=== PATIENT | male | born 1985 | race Caucasian/White ===

== ENCOUNTER 2021-04-25 13:07 | Emergency (ER) | payer SELFPAY ==
[2021-04-25 13:53] VITALS: BP 123/72; PULSE 63; RESP 16; TEMP 37.1; O2SAT 99; BMI 20.5
--- NOTE | 2021-04-25 14:09 | HMH.EDUTC ---
[facility] [place] Disposition Clinical Impression: Exposure to COVID-19 virus Disposition: Home, Self-Care Condition on Discharge: Good Instructions: Preventing the Spread of Coronavirus Discharge Instructions Additional Instructions: Drink plenty of fluids. Take tylenol for pain or fever. Return if you begin to have difficulty breathing. Follow up with your regular doctor. GO TO THE ER FOR ANY WORSENING SYMPTOMS Quarantine until you know the results of your covid-19 test. If it is positive, the health department should call you and give you further instructions about your length of Quarantine and other things. Notify your school or workplace of your results and follow their instructions regarding return to work/school. Referrals: Provider,Referral, [Primary Care Provider] - Time of Disposition: 14:13 Medical Decision Making - Medical Records Medical records reviewed: No: I reviewed the patient's medical records. - Jaziel Inquiry Pt receiving controlled substance: No Vital Signs: 04/25/21 13:53 04/25/21 14:33 Temperature 98.7 F 98.7 F Temperature Source Oral Pulse Rate 63 Pulse Rate [Right Radial] 63 Respiratory Rate 16 16 Blood Pressure 123/72 Blood Pressure [Right Arm] 123/72 Blood Pressure Mean [Right Arm] 89 Blood Pressure Source [Right Arm] Automatic Cuff Blood Pressure Position [Right Arm] Sitting 02 Sat by Pulse Oximetry 99 Oxygen Delivery Method Room Air Room Air Orders (Tests/Meds): ORDERS Category Date Time Status Covid-19 Nasal PCR ([facility]) Routine Lab 04/25/21 13:48 Received [facility] [place] HPI - General Stated complaint: covid test/exposure Time Seen by Provider: 04/25/21 14:09 Mode of Arrival: Ambulatory Source of Information: Patient Limitations: No Limitations Description of Symptoms (Recalled from Triage Doc. by RN): Covid exposure. Denies symptoms. HEENT Symptoms (Recalled from RN notes): No Resp Symptoms (Recalled from RN notes): No Skin Symptoms (Recalled from RN notes): No MS Symptoms (Recalled from RN notes): No Functional Status (Recalled from RN notes): n/a - History of Present Illness Provider Complaint: He has been exposed to covid-19 by his daughter having it. He denies any symptoms so far. - Related Data Allergies Allergy/AdvReac Type Severity Reaction Status Date / Time No Known Allergies Allergy Verified 04/25/21 14:03 - Worker's Comp Is this a Worker's Comp case?: No H History - Hepatitis A Screen Drug use history?: No High risk sexual behaviors?: No History of sexually transmitted infection?: No Currently employed?: No Childcare worker?: No Do you have indoor plumbing?: Yes Do you have electricity?: Yes Attestation statement:: This patient has been screened for Hepatitis A risk factors. I have reviewed the patient's past medical history: Yes ROS Obtained: Yes All systems reviewed & no additional complaints - Constitutional Constitutional: Reports system reviewed and no additional complaints, except as docu - Eyes Eyes: Reports system reviewed and no additional complaints, except as docu - ENT Ears, Nose, Mouth, and Throat: Reports system reviewed and no additional complaints, except as docu - Cardiovascular Cardiovascular: Reports system reviewed and no additional complaints, except as docu - Respiratory Respiratory: Reports system reviewed and no additional complaints, except as docu - Gastrointestinal Gastrointestingal: Reports: system reviewed and no additional complaints, except as docu Physical Exam - General General appearance: alert, in no apparent distress - Head Head exam: atraumatic, normocephalic, normal inspection - Eye Eye exam: Present: normal appearance, PERRL, EOMI - ENT ENT exam: Present: normal exam, normal oropharynx, mucous membranes moist, TM's normal bilaterally, normal external ear exam - Neck Neck exam: Present: normal inspection, full ROM, trachea midline. Absent: mening
[2021-04-25 14:33] VITALS: BP 123/72; PULSE 63; RESP 16; TEMP 37.1; O2SAT 99
--- NOTE | 2021-04-26 13:25 | PC.NURSE ---
PATIENT NOTIFIED OF POSITIVE COVID TEST AT THIS TIME
== END 2021-04-25 14:34 | disposition home or self-care (01) ==
PROVIDERS: Emergency Provider Nurse Practitioner Family
DX: U07.1 COVID-19 (principal)
CPT/HCPCS: 99202; G0463; U0003

== ENCOUNTER → 2021-08-14 12:23 | Outpatient (CLI) | payer SELFPAY | PROVIDERS: Visit Provider Nurse Practitioner | DX: Z20.822 Contact with and (suspected) exposure to COVID-19 (principal) | CPT/HCPCS: C9803; U0003; U0005 ==

== ENCOUNTER 2023-08-16 00:23 | Inpatient (IN) | payer SELFPAY ==
[2023-08-16] VITALS (23 sets, daily range): BP systolic 103–150; BP diastolic 51–97; PULSE 50–82; RESP 16–20; TEMP 36.1–36.9; O2SAT 94–100; BMI 20.9; BMI 21.5
[2023-08-16 00:45] LABS: Basophils # 0.1 K/mm3 (0-0.2); Basophils % 0.6 % (0.1-2.0); Eosinophils # 0.6 K/mm3 (0.0-0.4); Eosinophils % 5.1 % (0.1-12.0); Hematocrit 44.9 % (42.0-52.0); Hemoglobin 15.5 g/dL (14.1-18.0); Lymphocytes # 3.6 K/mm3 (0.7-4.5); Lymphocytes % 32.6 % (10-50); Mean Corpuscular HGB Conc 34.6 g/dL (31.8-35.4); Mean Corpuscular Hemoglobin 32.3 pg (27.0-31.2); Mean Corpuscular Volume 93.2 fl (80-94); Mean Platelet Volume 8.2 fl (7.4-10.4); Monocytes # 0.7 K/mm3 (0.1-1.0); Monocytes % 6.2 % (1.7-9.3); Neutrophils % 55.4 % (37.0-80.0); Platelet Count 286 K/mm3 (142-424); Red Blood Count 4.81 M/mm3 (4.60-6.20); Red Cell Distribution Width 13.1 % (11.5-17.5); White Blood Count 10.9 K/mm3 (4.8-10.8)
[2023-08-16] MEDS: 0.9 % SODIUM CHLORIDE 1000ML 1,000 ML 999 ML IV (00:51)
[2023-08-16] MEDS: ONDANSETRON 4MG/2ML VIAL 4 MG IV (00:51)
[2023-08-16] MEDS: KETOROLAC 30MG/ML VIAL 30 MG IV (00:51)
[2023-08-16 00:52] LABS: Alanine Aminotransferase 27 U/L (12-78); Albumin Level 4.7 g/dl (3.5-5.0); Albumin/Globulin Ratio 1.8 (1.1-1.8); Alkaline Phosphatase 80 U/L (38-126); Aspartate Amino Transferase 35 U/L (17-59); Bilirubin,Total 0.6 mg/dl (0.2-1.3); Blood Urea Nitrogen 14 mg/dl (9-20); Calcium 9.1 mg/dl (8.4-10.2); Chloride 103 mmol/L (98-107); Creatinine Clearance Estimated 127 mL/min (50-200); Estimated Glomerular Filt Rate 109 ml/min (>60); GFR (African American) 132 ML/MIN (>60); Globulin 2.6 g/dL (1.3-3.2); Glucose 123 mg/dl (74-100); Potassium 3.6 mmoL/L (3.5-5.1); Sodium 136 mmol/L (136-145); Total Protein,Serum 7.3 g/dl (6.3-8.2)
[2023-08-16 00:53] LABS: Anion Gap 10.6 mEq/L (5-15); Carbon Dioxide 26 mmol/L (22.0-30.0)
--- NOTE | 2023-08-16 00:59 | PC.NURSE ---
, RN, and Medic at bedside at this time.
--- NOTE | 2023-08-16 01:01 | PC.NURSE ---
paging at this time.
--- NOTE | 2023-08-16 01:02 | PC.NURSE ---
o/p with at this time.
[2023-08-16] MEDS: FENTANYL 100MCG/2ML VIAL 100 MCG IV (01:03)
--- NOTE | 2023-08-16 01:05 | PC.NURSE ---
called slitting and shipping supervisor to call in surgery team per at this time.
--- NOTE | 2023-08-16 01:05 | HMH.EDGENADL ---
Discharge Plan Disposition Chief Complaint: Urogenital-Male Referrals Follow up/Referrals: Provider,Referral, [Primary Care Provider] - See instructions Clinical Impressions Clinical Impression: Incarcerated right inguinal hernia Instructions Patient Instructions: DI for Urinary Tract Infection (UTI), DI for Urinary Tract Infection in Children Discharge ED Provider: Emery Diaz Adult HPI General Chief complaint: Urogenital-Male Stated complaint: Vomiting,Hernia right groin Time Seen by Provider: 08/16/23 00:27 Mode of Arrival: Ambulatory Source of Information: Patient and Spouse Limitations: No Limitations Description of Symptoms (Recalled from ER Triage Doc. by RN): Patient states that his hernia is swollen and hurting for the last few hours. 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 He last ate around 7 PM. He has developed worsening pain and swelling. He is also had nausea and vomiting. Related Data Allergies Allergy/AdvReac Type Severity Reaction Status Date / Time No Known Allergies Allergy Verified 04/25/21 14:03 [facility] Disclaimer: The information contained in this section may have been updated after the patient was seen, as this information can be updated by other users. Social History Smoking Status: Current every day smoker alcohol intake: never current occupational status: employed Travel in the last 8 weeks: None ROS Obtained: Yes All systems reviewed & no additional complaints except as documented Physical Exam General General appearance: alert and in distress (secondary to pain) Head Head exam: atraumatic and normocephalic Eye Eye exam: Present normal appearance, PERRL and EOMI ENT ENT exam: Present normal oropharynx and normal external ear exam Neck Neck exam: Present normal inspection and full ROM Chest Chest inspection: Present normal inspection and symmetric chest wall rise; Absent tenderness Respiratory Respiratory exam: Present normal lung sounds bilaterally; Absent respiratory distress Cardiovascular Cardiovascular exam: Present normal rhythm and bradycardia Abdominal Exam Abdominal exam: Present soft and tenderness (Mild, generalized); Absent distention or guarding exam: Present other (Marked firm swelling of the right scrotum and groin terminating at the inguinal canal. Severely tender. No significant overlying skin changes. Gas-filled.) Extremities Exam Extremities exam: Present normal inspection; Absent edema or joint swelling Back Exam Back exam: Present normal inspection; Absent tenderness Neurological Exam Neurological exam: Present alert and oriented X3; Absent motor sensory deficit Psychiatric Psychiatric exam: Present normal affect and normal mood Skin Skin exam: Present warm, dry and normal color Lymphatic Lymphatic Findings: no adenopathy Medical Decision Making Medical Records Medical records reviewed: Yes I reviewed the patient's medical records. Jaziel Inquiry Pt receiving controlled substance: No Jaziel was queried for this patient: No Vital Signs: 08/16/23 00:37 Temperature 97.8 F Temperature Source Oral Pulse Rate [Radial] 58 L Respiratory Rate 20 Blood Pressure [Left Arm] 126/83 Blood Pressure Mean [Left Arm] 97 Blood Pressure Source [Left Arm] Automatic Cuff Blood Pressure Position [Left Arm] Sitting 02 Sat by Pulse Oximetry 99 Oxygen Delivery Method Room Air Lab Data Lab results reviewed: Yes I reviewed the patient's lab results. Lab Results 08/16/23 00:37: WBC 10.9 H, RBC 4.81, Hgb 15.5, Hct 44.9, MCV 93.2, MCH 32.3 H, MCHC 34.6, RDW 13.1, Plt Count 286, MPV 8.2, Neut % (Auto) 55.4, Lymph % (Auto) 32.6, Blount % (Auto) 6.2, Eos % (Auto) 5.1, Baso % (Auto) 0.6, Neut # (Auto) 6.0, Lymph # (Auto) 3.6, Blount # (Auto) 0.7, Eos # (Auto) 0.6 H, Baso # (Auto) 0.1, Sodium 136, Potassium 3.6, Chloride 103, Carbon Dioxide 26, Anion Gap 10.6, BUN 14, Creatinine 0.80, Estimated Creat Clear 127, Estimated GFR 109, Est GFR ( Amer) 132, Glucose 123 H, Calcium 9.1, Total Bilirubin 0.6, AST 35, ALT 27, Alkaline Phosphatase 80, Total Protein 7.3, Albumin 4.7, Globulin 2.6, Albumin/Globulin Ratio 1.8 08/16/23 00:37 08/16/23 00:37 Orders (Tests/Meds): ED MEDICATIONS Generic Name Dose Route Start Last Admin Trade Name Freq PRN Reason Stop Dose Admin Fentanyl Citrate 100 mcg 08/16/23:03 08/16/23 01:03 Fentanyl 100mcg/2ml Vial IV 08/16/23 01:04 100 mcg ONCE ONE Administration Sodium Chloride 1,000 mls @ 999 mls/hr 08/16/23 00:45 08/16/23 00:51 Sod Chlor 0.9% 1000ml Bag IV 08/16/23 01:45 999 mls/hr .Q1H1M KELSEA Administration Discontinued Medications Generic Name Dose Route Start Last Admin Trade Name Cooper PRN Reason Stop Dose Admin Fentanyl Citrate 150 mcg 08/16/23 00:34 Fentanyl 100mcg/2ml Vial IV 08/16/23 00:35 ONCE ONE Ketorolac Tromethamine 30 mg 08/16/23 00:34 08/16/23 00:51 Ketorolac 30mg/Ml Vial IV 08/16/23 00:35 30 mg ONCE ONE Administration Ondansetron HCl 4 mg 08/16/23 00:34 08/16/23 00:51 Ondansetron 4mg/2ml Vial IV 08/16/23 00:35 4 mg ONCE ONE Administration ORDERS Category Date Time Status CBC w/Auto Diff [Complete Blood Count Auto Diff] Stat Lab 08/16/23 00:37 Completed CMP [Comprehensive Metabolic Panel] Stat Lab 08/16/23 00:37 Completed Lactic Acid Stat Lab 08/16/23 00:39 Ordered Medical Decision Narrative: 37-year-old male with distant history of incarcerated left inguinal hernia status post repair, history of known right inguinal hernia without operative intervention, otherwise healthy presents with a few hours of severe pain and swelling in the right groin and scrotum. History was obtained via conversation with patient, family. On arrival, patient is [afebrile, hemodynamically stable, satting appropriately, alert, oriented x4, GCS 15], moving all extremities spontaneously. Full physical exam performed and significant for findings consistent with a large gas-filled incarcerated right inguinal hernia without overlying skin changes. Differential includes but is not limited to reducible hernia, incarcerated hernia, strangulated hernia, bowel obstruction. Patient was given 30 mg Toradol, 100 mcg of fentanyl for attempted reduction. Workup initiated including CBC CMP lactate. Procedure: Hernia reduction Indication: Incarcerated hernia Details: Manual reduction of the incarcerated hernia was attempted by me at bedside after administration of IV fentanyl. Patient achieved appropriate analgesia. Despite persistent effort, we were unable to reduce any of the gas or bowel from the hernia sac. Given this, general surgery was emergently consulted and an interactive discussion was had with Dr. Dalal on-call. Patient to be taken emergently to the OR for operative repair. Laboratory workup independently interpreted by me and significant for mild leukocytosis, normal renal function. CT imaging was considered, but deemed unnecessary as it is unlikely to change clinical course and may only delay operative intervention. Given patient history, exam and workup, patient's presentation most likely represents acute incarcerated right inguinal hernia. Procedures Risk/Benefits of Procedure(s) Were Explained: Yes Miscellaneous Procedure Procedure Performed: Procedure: right inguinal hernia reduction Indication: Incarcerated hernia Details: Manual reduction of the incarcerated hernia was attempted by me at bedside after administration of IV fentanyl. Patient achieved appropriate analgesia. Despite persistent effort, we were unable to reduce any of the gas or bowel from the hernia sac. Critical Care Critical Care Time Critical Care Time: Yes Attestation: On 08/16/23, the high probability of a clinically significant, sudden or life threatening deterioration of the following system(s) GI required my full and direct attention, intervention and personal management. The time I documented below is in addition to time spent performing reported procedures but includes the following listed in this critical care notation. Total Time Total Critical Care Time: 36
--- NOTE | 2023-08-16 01:08 | PC.NURSE ---
Surgery team paged per ER for Dr. Roldan at 0105. Julian Telles returned call at 0106. Emy Jaimes returned call at 0107. Leticia Camarillo returned call at 0108.
[2023-08-16] MEDS: PROMETHAZINE HCL 25MG/ML 1ML VIAL 25 MG IV (01:17)
--- NOTE | 2023-08-16 01:20 | PC.NURSE ---
Dr Roldan @ bedside
--- NOTE | 2023-08-16 01:36 | P.HP_ITS ---
HPI HPI HPI: This is a 37-year-old gentleman who reported to the emergency department with increasing groin pain and scrotal swelling. Evaluation revealed an incarcerated right inguinal hernia and the surgical service was immediately called. Forwarded from emergency department evaluation: HPI narrative: 37-year-old male, history of incarcerated left inguinal hernia [facility] many years ago, history of a known right inguinal hernia that has had no operative intervention, presents with severe right inguinal pain and swelling for last few hours. He last ate around 7 PM. He has developed worsening pain and swelling. He is also had nausea and vomiting. [facility] Disclaimer: The information contained in this section may have been updated after [facility], as this information can be updated by other users. Social History (Updated 08/16/23 @ 01:20 by Emery Diaz MD) Smoking Status: Current every day smoker alcohol intake: never current occupational status: employed Travel in the last 8 weeks: None Meds Home Medications and Allergies New Prescriptions to Start Prescriptions: Allergies Allergy/AdvReac Type Severity Reaction Status Date / Time No Known Allergies Allergy Verified 04/25/21 14:03 Exam Data for Last 24 hours Vital signs and Labs for Last 24 Hours: Temp Pulse Resp BP Pulse Ox O2 Del Method 97.8 F 51 L 16 117/89 100 Room Air 08/16/23 00:37 08/16/23 01:15 08/16/23 01:15 08/16/23 01:15 08/16/23 01:15 08/16/23 00:37 Laboratory Results - last 24 hr 08/16/23 00:37: WBC 10.9 H, RBC 4.81, Hgb 15.5, Hct 44.9, MCV 93.2, MCH 32.3 H, MCHC 34.6, RDW 13.1, Plt Count 286, MPV 8.2, Neut % (Auto) 55.4, Lymph % (Auto) 32.6, Mercer % (Auto) 6.2, Eos % (Auto) 5.1, Baso % (Auto) 0.6, Neut # (Auto) 6.0, Lymph # (Auto) 3.6, Mercer # (Auto) 0.7, Eos # (Auto) 0.6 H, Baso # (Auto) 0.1, S odium 136, Potassium 3.6, Chloride 103, Carbon Dioxide 26, Anion Gap 10.6, BUN 14, Creatinine 0.80, Estimated Creat Clear 127, Estimated GFR 109, Est GFR ( Amer) 132, Glucose 123 H, Calcium 9.1, Total Bilirubin 0.6, AST 35, ALT 27, Alkaline Phosphatase 80, Total Protein 7.3, Albumin 4.7, Globulin 2.6, Albumin/Globulin Ratio 1.8 I & O for Last 24 hours: Intake & Output 08/13/23 08/14/23 08/15/23 08/16/23 11:59 11:59 11:59 11:59 Weight 155 lb Constitutional Constitutional: no acute distress *Routine HEENT Exam Head: Present normocephalic Eye: Present EOMI ENT: Present mucous membranes moist *Routine Neck Exam Neck: Present full ROM Routine Chest/Breast/Axilla Exam Chest wall: Absent tenderness *Routine Respiratory Exam Respiratory: Absent respiratory distress *Routine Cardiovascular Exam Cardiovascular: Present bradycardia *Routine Abdominal Exam Abdominal: Present hernia (Incarcerated right scrotal hernia) *Routine Rectal Exam Rectal:: deferred *Routine Genitalia Exam Genitalia:: deferred *Routine Extremities Exam Extremities: Present full ROM Routine Back/Spine/Pelvis Exam Back/Spine: Present full ROM *Routine Skin Exam Skin: Present intact *Routine Neurological Exam Neurological: Present alert Routine Psychiatric Exam Psychiatric: Present normal affect Results Results Lab Results Last 24 Hours:: Laboratory Results - last 24 hr 08/16/23 00:37: WBC 10.9 H, RBC 4.81, Hgb 15.5, Hct 44.9, MCV 93.2, MCH 32.3 H, MCHC 34.6, RDW 13.1, Plt Count 286, MPV 8.2, Neut % (Auto) 55.4, Lymph % (Auto) 32.6, Mercer % (Auto) 6.2, Eos % (Auto) 5.1, Baso % (Auto) 0.6, Neut # (Auto) 6.0, Lymph # (Auto) 3.6, Mercer # (Auto) 0.7, Eos # (Auto) 0.6 H, Baso # (Auto) 0.1, Sodium 136, Potassium 3.6, Chloride 103, Carbon Dioxide 26, Anion Gap 10.6, BUN 14, Creatinine 0.80, Estimated Creat Clear 127, Estimated GFR 109, Est GFR ( Amer) 132, Glucose 123 H, Calcium 9.1, Total Bilirubin 0.6, AST 35, ALT 27, Alkaline Phosphatase 80, Total Protein 7.3, Albumin 4.7, Globulin 2.6, Albumin/Globulin Ratio 1.8 Assessment and Plan *Assessment and plan (1) Incarcerated right inguinal hernia: Status: Acute Category: Medical Code(s): K40.30 - Unilateral inguinal hernia, with obstruction, without gangrene, not specified as recurrent Plan: Emergent operative exploration for possible bowel resection and possible hernia repair. I have discussed the risks and benefits including, but not limited to: Bleeding Infection Damage to surrounding tissue Inherent risks of sedation The patient agrees to proceed.
[2023-08-16] MEDS: LIDOCAINE 1% 20ML MDV 20 ML (02:10)
--- NOTE | 2023-08-16 02:41 | SUR.OPER ---
Patient was already medicated prior to going over consent. and patient were explained the procedure by Dr. Roldan and the consent was signed by the Nguyen Nuñez, the patient verbalized consent also while the was signing. Dr aware and okay due to the emergency situation. The procedure and consent stated, right incarcerated inguinal hernia, possible bowel resection. Dr. Roldan and I also signed the consent prior to procedure. Coude 16f catheter was inserted with no difficulty at 0158. Ua was collected at 0159. The patient was prepped with hibiclens, the abdomen, penis and scrotal areas. The procedure began at 0210 after time out was called.
--- NOTE | 2023-08-16 02:47 | P.PNANES_ITS ---
[facility] Disclaimer: The information contained in this section may have been updated after the patient was seen, as this information can be updated by other users. Social History (Updated 08/16/23 @ 01:20 by Emery Diaz MD) Smoking Status: Current every day smoker alcohol intake: never substance use type: marijuana current occupational status: employed Travel in the last 8 weeks: None [facility] Anesthesia Checklist Patient Identification Patient Identification: Arm Band Structural Data Admitted From: Emergency Dept Planned Operative Procedure/s: Open Right Inguinal Hernia Repair Consent for Planned Operative Procedure(s) Verified: Yes Verified Documents: Surgical Consent and History and Physical NPO Status Verified Time NPO: 21:00 (08/15/23) Additional verifications Anesthesia Reactions: No Airway Assessment Mallampati Score:: Class II C-Spine Mobility Assessed: Yes TMJ Mobility Assessed: Yes Dentition: Poor Dentition Neurological Assessment Level of Consciousness: Awake and Alert Anesthesia Plan Anesthesia Risk discussed: Yes Anesthesia Plan: Verified ASA Class: II (E) Anesthesia Type: General
--- NOTE | 2023-08-16 04:03 | EXP.OP.NOTE ---
Date of procedure: 08/16/23 Pre-op Diagnosis:: Incarcerated right inguinal hernia Post-op Diagnosis:: Same Procedure performed:: Open repair of incarcerated right inguinal hernia Surgeon:: Nic Roldan MD MUSICAL INSTRUMENT MAKER:: Julian Fierro Anesthesia: GETA Estimated blood loss (mL): 25 Operative findings:: Incarcerated small bowel Small bowel appeared viable Edematous small bowel mesentery Operative note:: After informed consent was obtained the patient was taken to the operating room and placed in the supine position. General anesthesia was induced and his abdomen and groin/scrotum were prepped and draped in a sterile fashion. After infiltration with local anesthetic an oblique incision was made in the right groin. Dissection was taken through Kylie's fascia to the level of the external aponeurosis. The external aponeurosis was opened sharply to the level of the external ring. Incarcerated hernia with significant tense distention noted throughout the canal. Dissection continued in a cephalad direction and in a caudal direction to free surrounding tissue. A combination of sharp dissection, blunt dissection, and electrocautery was utilized to free adhered cremasteric fibers. The vas deferens and vessels were identified and dissected free from surrounding tissue. No obvious injury to the vas deferens or vessels noted. The hernia sac was carefully entered. Viable small bowel was visualized. The mesentery of the small bowel was somewhat edematous but no areas of obvious ischemia noted. The hernia sac was transected at the site of opening to allow for a distal and proximal portion. The distal portion of hernia sac was carefully freed from surrounding tissue and passed off for pathologic evaluation. The proximal portion was dissected free from surrounding tissue prior to reapproximation with running Vicryl suture. And an extra-large PerFix plug was secured in position with interrupted Ethibond. The PerFix overlay was then secured to the shelving edge inferiorly and fascial margin superiorly with interrupted Ethibond. The external aponeurosis was reapproximated with running Vicryl. Kylie's fascia was closed in the same manner. Skin was closed with the INSORB stapler. Dressings were applied and patient was transferred to recovery in stable condition Condition: stable Disposition: PACU Specimens:: Distal hernia sac Complications:: No immediate
--- NOTE | 2023-08-16 04:19 | EXP.ANES.I ---
[facility] Anesthesia Record Part I Anesthesia Record I Intake, IV Amount: 1,000 Hydration: Adequate Estimated blood loss (mL): 25 Urine output (mL): 100 Blood Products used (#): none Blood Pressure: 124/76 SaO2: 99 Pulse Rate: 70 Airway Patency: Patent Respiratory Rate: 16 Temperature: 97.8 F Patient is:: Drowsy and Stable Stable to PACU at:: 04:10
--- NOTE | 2023-08-16 04:37 | PC.NURSE ---
[id number] RECEIVED PHONE REPORT FROM NI RN OR/PACU NURSE. PATIENT IS 37 YO MALE. NKA. S/P RIGHT INGUINAL HERNIA REPAIR. GENERAL ANESTHESIA. SURGEON DR BYRD. TRANSPORTING BY BED TO ROOM 210.
--- NOTE | 2023-08-16 04:42 | PC.NURSE ---
pt arrived to floor at this time
[2023-08-16] MEDS: 0.9 % SODIUM CHLORIDE 1000ML 1,000 ML 125 ML IV (05:00)
--- NOTE | 2023-08-16 05:07 | PC.NURSE ---
PATIENT ARRIVED TO THE FLOOR AT 0443 VIA BED ACCOMPANIED BY SIG OTHER. A/O X 4. DENIES PAIN AT THIS TIME. DRSG TO RIGHT GROIN C/D/I. + BOWEL SOUNDS X 4.
--- NOTE | 2023-08-16 06:23 | PC.NURSE ---
c/o burning on urination. VSS/AFEBRILE.
--- NOTE | 2023-08-16 09:55 | CT_ITS ---
PROCEDURE INFORMATION: Exam: CT Abdomen And Pelvis Without Contrast Exam date and time: 08/16/2023 10:13 AM Age: 37 years old Clinical indication: Mass, lump, or swelling; Other: Scrotum; Prior surgery; Surgery date: Post-operative (0-2 days); Surgery type: Hernia repair; Additional info: Scrotal edema status post hernia repair TECHNIQUE: Imaging protocol: Computed tomography of the abdomen and pelvis without contrast. Radiation optimization: All CT scans at this facility use at least one of these dose optimization techniques: automated exposure control; mA and/or kV adjustment per patient size (includes targeted exams where dose is matched to clinical indication); or iterative reconstruction. REPORTING DATA: Count of CT and Cardiac NM exams in prior 12 months: This patient has received 0 known CTs and 0 known cardiac nuclear medicine studies in the 12 months prior to the current study. COMPARISON: No relevant prior studies available. FINDINGS: Lungs: Minor atelectatic changes at the lung bases. Liver: Normal. No mass. Gallbladder and bile ducts: Normal. No calcified stones. No ductal dilation. Pancreas: Normal. No ductal dilation. Spleen: Normal. No splenomegaly. Adrenal glands: Normal. No mass. Kidneys and ureters: Normal. No hydronephrosis. Stomach and bowel: See Reproductive finding. Appendix: No evidence of appendicitis. Intraperitoneal space: See Reproductive finding. Vasculature: Unremarkable. No abdominal aortic aneurysm. Lymph nodes: Unremarkable. No enlarged lymph nodes. Urinary bladder: Unremarkable as visualized. Reproductive: There is a large circumscribed oval shaped hematoma measuring 18 x 10 cm extending from the right inguinal canal into the scrotal cavity. There is some surrounding scrotal wall edema. There is also diffuse subcutaneous emphysema within the right lower abdominal wall and extending into the inguinal canal. There is also a small amount of intraperitoneal air just deep to the abdominal wall within the right upper pelvis. Amount of air is felt excessive for normal postoperative changes and concerning for occult bowel perforation or necrotizing fasciitis. There is a small amount of fluid insinuating around bowel loops in this area as well. Bones/joints: Unremarkable. No acute fracture. Soft tissues: See Reproductive finding. IMPRESSION: 1. Large acute circumscribed hematoma measuring 18 x 10 cm extending from the right inguinal canal into the right scrotal cavity. 2. Moderate amount of subcutaneous air at the operative site as well as a small amount of intraperitoneal air and fluid just deep to the abdominal wall right anterior pelvis somewhat excessive for normal postoperative changes concerning for either occult bowel injury or necrotizing fasciitis.
--- NOTE | 2023-08-16 10:13 | EXP.SURG.PN ---
Subjective Patient reports: no new complaints and feels better Exam Data for Last 24 hours Vital signs and Labs for Last 24 Hours: Temp Pulse Resp BP Pulse Ox O2 Del Method 97.3 F L 72 17 109/66 L 97 Room Air 08/16/23 09:30 08/16/23 09:30 08/16/23 09:30 08/16/23 09:30 08/16/23 09:30 08/16/23 09:30 Laboratory Results - last 24 hr 08/16/23 00:37: WBC 10.9 H, RBC 4.81, Hgb 15.5, Hct 44.9, MCV 93.2, MCH 32.3 H, MCHC 34.6, RDW 13.1, Plt Count 286, MPV 8.2, Neut % (Auto) 55.4, Lymph % (Auto) 32.6, [place] % (Auto) 6.2, Eos % (Auto) 5.1, Baso % (Auto) 0.6, Neut # (Auto) 6.0, Lymph # (Auto) 3.6, [place] # (Auto) 0.7, Eos # (Auto) 0.6 H, Baso # (Auto) 0.1, Sodium 136, Potassium 3.6, Chloride 103, Carbon Dioxide 26, Anion Gap 10.6, BUN 14, Creatinine 0.80, Estimated Creat Clear 127, Estimated GFR 109, Est GFR ( Amer) 132, Glucose 123 H, Calcium 9.1, Total Bilirubin 0.6, AST 35, ALT 27, Alkaline Phosphatase 80, Total Protein 7.3, Albumin 4.7, Globulin 2.6, Albumin/Globulin Ratio 1.8 I & O for Last 24 hours: Intake & Output 08/13/23 08/14/23 08/15/23 08/16/23 11:59 11:59 11:59 11:59 Intake Total 1000 / 1000 Output Total 0 / 0 Balance 1000 / 1000 Weight 159 lb 4.8 oz Constitutional Constitutional: no acute distress *Routine Respiratory Exam Respiratory: Absent respiratory distress *Routine Cardiovascular Exam Cardiovascular: Absent tachycardia *Routine Abdominal Exam Abdominal: Present soft *Routine Exam Scrotal: Present swelling Comments: Fairly profound postoperative scrotal swelling. Progress Note: A&P Assessment and plan (1) Incarcerated right inguinal hernia: Status: Acute Assessment and plan: Overall, doing fairly well status post open hernia repair. Has some mesenteric edema with no evidence of ischemia noted intraoperatively. No bowel resection completed. Fairly profound scrotal edema this a.m. limits physical examination. CT A/P to evaluate for possible immediate recurrence
[2023-08-16] MEDS: HYDROCODONE/APAP 5/325 MG TABLET 1 TAB PO ×2 (11:27→20:47)
[2023-08-16 12:07] LABS: Lymphocytes % 9.4 % (10-50)
[2023-08-16 13:28] LABS: Basophils % 0.1 % (0.1-2.0); Hematocrit 32.3 % (42.0-52.0); Lymphocytes # 1.3 K/mm3 (0.7-4.5); Mean Corpuscular HGB Conc 35.3 g/dL (31.8-35.4); Mean Corpuscular Hemoglobin 32.6 pg (27.0-31.2); Mean Corpuscular Volume 92.4 fl (80-94); Mean Platelet Volume 8.9 fl (7.4-10.4); Monocytes # 0.9 K/mm3 (0.1-1.0); Monocytes % 6.1 % (1.7-9.3); Neutrophils # 11.8 K/mm3 (1.8-7.8); Neutrophils % 84.3 % (37.0-80.0); Platelet Count 270 K/mm3 (142-424); Red Blood Count 3.49 M/mm3 (4.60-6.20)
[2023-08-16 13:32] LABS: Hemoglobin 11.4 g/dL (14.1-18.0)
--- NOTE | 2023-08-16 16:45 | PC.NURSE ---
A&OX4. TOLERATING RA WELL. PT HAS BEEN SLEEPING IN BED MAJORITY OF SHIFT, STATES HE WAS UP MOST OF LAST NIGHT. R SCROTUM IS VERY SWOLLEN, TIGHT, AND PT REPORTS TO FEL VERY UNCOMFORTABLE. MEDICATED PER MAR X1 FOR PAIN, EFFECTIVENESS NOTED ON REASSESSMENT. SCROTUM SIZE HAS REMAINED THE SAME THUS FAR THIS SHIFT. ELEVATED AND ICE PACKS APPLIED. INCISION SITE TO R GROIN CDI. PT HAS HAD NO OTHER NEEDS OR C/O. VSS.
[2023-08-17] VITALS: BP 111/51; PULSE 62; RESP 16; TEMP 36.7; O2SAT 99
[2023-08-17] MEDS: 0.9 % SODIUM CHLORIDE 1000ML 1,000 ML 125 ML IV (00:48)
[2023-08-17 04:00] VITALS: BP 104/52; PULSE 64; RESP 16; TEMP 36.6; O2SAT 98; BMI 21.5
[2023-08-17 07:16] LABS: Basophils % 0.3 % (0.1-2.0); Eosinophils # 0.2 K/mm3 (0.0-0.4); Eosinophils % 2.1 % (0.1-12.0); Hematocrit 28.6 % (42.0-52.0); Lymphocytes # 2.4 K/mm3 (0.7-4.5); Lymphocytes % 30.8 % (10-50); Mean Corpuscular HGB Conc 34.6 g/dL (31.8-35.4); Mean Corpuscular Hemoglobin 32.6 pg (27.0-31.2); Mean Corpuscular Volume 94.4 fl (80-94); Mean Platelet Volume 8.5 fl (7.4-10.4); Monocytes # 0.5 K/mm3 (0.1-1.0); Monocytes % 6.2 % (1.7-9.3); Neutrophils # 4.7 K/mm3 (1.8-7.8); Neutrophils % 60.6 % (37.0-80.0); Platelet Count 191 K/mm3 (142-424); Red Blood Count 3.03 M/mm3 (4.60-6.20); Red Cell Distribution Width 13.1 % (11.5-17.5); White Blood Count 7.7 K/mm3 (4.8-10.8)
--- NOTE | 2023-08-17 07:28 | EXP.ANES.II ---
[facility] Anesthesia Record Part II Anesthesia Record Part II Discharge Time: 04:40 Destination: Medical Surgical Department PACU nurse assessment reviewed?: Yes Patient Condition:: Good Anesthesia Complications:: None Swallowing reflex intact?: Yes Airway Patency: Patent Cyanosis?: No Blood Pressure: 128/58 SaO2: 99 Respiratory Rate: 18 Pulse Rate: 66 Temperature: 97.8 F Mental Status: Alert & Oriented Pain level:: 0 Nausea and/or vomitting:: None Intake, IV Amount: 0 Hydration: Adequate
[2023-08-17 07:29] VITALS: BP 128/58; PULSE 66; RESP 18; TEMP 36.6; O2SAT 99
--- NOTE | 2023-08-17 07:53 | EXP.SURG.PN ---
Subjective Patient reports: no new complaints and feels better Exam Data for Last 24 hours Vital signs and Labs for Last 24 Hours: Temp Pulse Resp BP Pulse Ox O2 Del Method 97.9 F 64 18 104/52 L 98 Room Air 08/17/23 04:00 08/17/23 04:00 08/17/23 07:29 08/17/23 04:00 08/17/23 04:00 08/17/23 06:21 Laboratory Results - last 24 hr 08/16/23 12:01: WBC 14.0 H D, RBC 3.49 L D, Hgb 11.4 L D, Hct 32.3 L, MCV 92.4, MCH 32.6 H, MCHC 35.3, RDW 13.0, Plt Count 270, MPV 8.9, Neut % (Auto) 84.3 H, Lymph % (Auto) 9.4 L, [place] % (Auto) 6.1, Eos % (Auto) 0.0 L, Baso % (Auto) 0.1, Neut # (Auto) 11.8 H, Lymph # (Auto) 1.3, [place] # (Auto) 0.9, Eos # (Auto) 0.0, Baso # (Auto) 0.0 08/17/23 06:16: WBC 7.7 D, RBC 3.03 L, Hct 28.6 L, MCV 94.4 H, MCH 32.6 H, MCHC 34.6, RDW 13.1, Plt Count 191 D, MPV 8.5, Neut % (Auto) 60.6, Lymph % (Auto) 30.8, [place] % (Auto) 6.2, Eos % (Auto) 2.1, Baso % (Auto) 0.3, Neut # (Auto) 4.7, Lymph # (Auto) 2.4, [place] # (Auto) 0.5, Eos # (Auto) 0.2, Baso # (Auto) 0.0 I & O for Last 24 hours: Intake & Output 08/14/23 08/15/23 08/16/23 08/17/23 11:59 11:59 11:59 11:59 Intake Total 1270 / 1270 935 / 935 Output Total 0 / 0 750 / 750 Balance 1270 / 1270 185 / 185 Weight 159 lb 4.8 oz 159 lb 4.791 oz Constitutional Constitutional: no acute distress *Routine Respiratory Exam Respiratory: Absent respiratory distress *Routine Cardiovascular Exam Cardiovascular: Absent tachycardia *Routine Abdominal Exam Abdominal: Present soft *Routine Exam Scrotal: Present swelling (Significant improvement versus yesterday) Progress Note: A&P Assessment and plan (1) Incarcerated right inguinal hernia: Status: Acute Assessment and plan: Overall, doing well status post open repair of incarcerated right inguinal hernia. Profound tense scrotal swelling noted yesterday has significantly improved. White blood cell count normal this morning. Discharge home with close outpatient follow-up
[2023-08-17 08:00] VITALS: BP 106/65; PULSE 73; RESP 17; TEMP 37.1; O2SAT 96
--- NOTE | 2023-08-17 08:02 | P.DS_ITS ---
General Admission date:: 08/16/23 Discharge date: 08/17/23 HPI HPI HPI: This is a 37-year-old gentleman who reported to the emergency department with increasing groin pain and scrotal swelling. Evaluation revealed an incarcerated right inguinal hernia and the surgical service was immediately called. 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 He last ate around 7 PM. He has developed worsening pain and swelling. He is also had nausea and vomiting. Hospital Course Hospital Course Hospital Course: The patient underwent open repair of incarcerated right inguinal hernia. Please see operative report for detail. Initially, he was placed in observation status; however, approximately 6 hours postop fairly profound tense scrotal swelling was noted. The degree of tense swelling was felt to be [id number] for postoperative status and a CT scan was obtained. The CT scan revealed a fairly large hematoma but no evidence of immediate hernia recurrence. The CT scan also showed a moderate amount of subcutaneous air at the operative site, as well as, a small amount of intraperitoneal air and fluid just deep to the surgical incision. Although not exceptionally likely, the radiographic findings raised mild concern for bowel injury or developing soft tissue infection. Even though the patient was afebrile with stable and normal vital signs and had no physical exam findings consistent with necrotizing soft tissue infection, the decision was made to convert his stay to full admission status for serial exams, follow-up laboratory evaluation, and more intense nursing care/observation (as his stay would need to be greater than 24 hours). On the morning of discharge he was afebrile with stable and normal vital signs. He was ambulating and tolerating a regular diet. No evidence of soft tissue infection noted. His white blood cell count was normal and his scrotal swelling was significantly improved. Exam Data for Last 24 hours Vital signs and Labs for Last 24 Hours: Temp Pulse Resp BP Pulse Ox O2 Del Method 97.9 F 64 18 104/52 L 98 Room Air 08/17/23 04:00 08/17/23 04:00 08/17/23 07:29 08/17/23 04:00 08/17/23 04:00 08/17/23 06:21 Laboratory Results - last 24 hr 08/16/23 12:01: WBC 14.0 H D, RBC 3.49 L D, Hgb 11.4 L D, Hct 32.3 L, MCV 92.4, MCH 32.6 H, MCHC 35.3, RDW 13.0, Plt Count 270, MPV 8.9, Neut % (Auto) 84.3 H, Lymph % (Auto) 9.4 L, [place] % (Auto) 6.1, Eos % (Auto) 0.0 L, Baso % (Auto) 0.1, Neut # (Auto) 11.8 H, Lymph # (Auto) 1.3, [place] # (Auto) 0.9, Eos # (Auto) 0.0, Baso # (Auto) 0.0 08/17/23 06:16: WBC 7.7 D, RBC 3.03 L, Hct 28.6 L, MCV 94.4 H, MCH 32.6 H, MCHC 34.6, RDW 13.1, Plt Count 191 D, MPV 8.5, Neut % (Auto) 60.6, Lymph % (Auto) 30.8, [place] % (Auto) 6.2, Eos % (Auto) 2.1, Baso % (Auto) 0.3, Neut # (Auto) 4.7, Lymph # (Auto) 2.4, [place] # (Auto) 0.5, Eos # (Auto) 0.2, Baso # (Auto) 0.0 I & O for Last 24 hours: Intake & Output 08/14/23 08/15/23 08/16/23 08/17/23 11:59 11:59 11:59 11:59 Intake Total 1270 / 1270 935 / 935 Output Total 0 / 0 750 / 750 Balance 1270 / 1270 185 / 185 Weight 159 lb 4.8 oz 159 lb 4.791 oz Constitutional Constitutional: no acute distress *Routine HEENT Exam Head: Present normocephalic Eye: Present EOMI ENT: Present mucous membranes moist *Routine Neck Exam Neck: Present full ROM Routine Chest/Breast/Axilla Exam Chest wall: Absent tenderness *Routine Respiratory Exam Respiratory: Absent respiratory distress *Routine Cardiovascular Exam Cardiovascular: Absent tachycardia *Routine Abdominal Exam Abdominal: Present soft *Routine Rectal Exam Patient deferred: visual exam *Routine Exam Scrotal: Present swelling *Routine Extremities Exam Extremities: Present full ROM Routine Back/Spine/Pelvis Exam Back/Spine: Present full ROM *Routine Skin Exam Skin: Absent erythema *Routine Neurological Exam Neurological: Present alert Routine Psychiatric Exam Psychiatric: Present normal affect Results Data Completed and Pending Labs on day of discharge: Labs from last 24 hours 08/17/23 08/16/23 06:16 12:01 WBC 7.7 D 14.0 H D RBC 3.03 L 3.49 L D Hgb 11.4 L D Hct 28.6 L 32.3 L MCV 94.4 H 92.4 MCH 32.6 H 32.6 H MCHC 34.6 35.3 RDW 13.1 13.0 Plt Count 191 D 270 MPV 8.5 8.9 Neut % (Auto) 60.6 84.3 H Lymph % (Auto) 30.8 9.4 L [place] % (Auto) 6.2 6.1 Eos % (Auto) 2.1 0.0 L Baso % (Auto) 0.3 0.1 Neut # (Auto) 4.7 11.8 H Lymph # (Auto) 2.4 1.3 [place] # (Auto) 0.5 0.9 Eos # (Auto) 0.2 0.0 Baso # (Auto) 0.0 0.0 DS: Diagnosis Discharge Diagnosis (1) Incarcerated right inguinal hernia: Status: Acute Code(s): K40.30 - Unilateral inguinal hernia, with obstruction, without gangrene, not specified as recurrent Meds Home Medications and Allergies Home Medications Medication Instructions Recorded Confirmed Type hydrocodone 5 mg-acetaminophen 325 1 tab PO Q6H PRN post-op pain #13 08/17/23 Rx mg tablet tabs New Prescriptions to Start Prescriptions: hydrocodone-acetaminophen Nic Roldan Allergies Allergy/AdvReac Type Severity Reaction Status Date / Time lidocaine Allergy Mild Rash Verified 08/16/23 05:01 procaine Allergy Mild Rash Verified 08/16/23 05:01 Discharge Plan Disposition Patient Disposition: Home, Self-Care Condition: Good Discharge Order Discharge Orders: Discharge Order (Routine); Ordered 08/17/23 Ordered By: Nic Roldan Follow up Plan Follow up with: Nic Roldan MD [Staff Physician] - 09/01/23 (The office will call you with a follow up appt. ) Prescriptions/Medication Reconciliation: New hydrocodone-acetaminophen 5-325 mg tablet 1 tab PO Q6H PRN (Reason: post-op pain) Qty: 13 0RF Problem Reconciliation Problems Reviewed?: Yes Patient Discharge Instructions ACTIVITY: Ambulate as tolerated and No heavy lifting DIET: advance to your usual diet Patient Instructions: DI for Hernia Repair, DI for Surgical Site Infection, Catheter-associated Urinary Tract Infection Providers Primary Care Provider: Provider,Referral Admit Provider: Nic Roldan Attending Provider: Nic Roldan
[2023-08-17] MEDS: HYDROCODONE/APAP 5/325 MG TABLET 1 TAB PO (08:16)
[2023-08-17 08:17] LABS: Hemoglobin 9.9 g/dL (14.1-18.0)
--- NOTE | 2023-08-18 14:07 | CARE MANAGER ---
Contacted patient related to hospital discharge. He states he is sore, but is doing ok and he made his follow up appointment for next Wednesday as well. Denies any questions or concerns. KELVIN Cobb
== END 2023-08-17 08:19 | disposition home or self-care (01) | DRG 352 ==
LOC: ER 02:00 → 2ND 05:15
PROVIDERS: Admitting Provider Surgery; Emergency Provider Emergency Medicine; Visit Provider Surgery
PROC: 0YQ50ZZ Repair Right Inguinal Region, Open Approach (ICD-10-PCS; principal; 2023-08-16 01:50)
DX: K40.30 Unilateral inguinal hernia, with obstruction, without gangrene, not specified as recurrent (principal)
CPT/HCPCS: 49507; 36415; 74176; 80053; 85025; 87086; 99291; J0330; J2405

== ENCOUNTER 2023-08-23 15:52 | Emergency (ER) | payer OTHER, SELFPAY ==
[2023-08-23 15:53] VITALS: BP 128/76; PULSE 86; RESP 18; TEMP 36.9; O2SAT 100; BMI 19.6
[2023-08-23 16:23] LABS: Coronavirus 19, PCR Not Detected (NotDetected); Influenza A, PCR Not Detected (NotDetected); Influenza B, PCR Not Detected (NotDetected)
--- NOTE | 2023-08-23 16:46 | CT_ITS ---
PROCEDURE INFORMATION: Exam: CT Abdomen And Pelvis With Contrast Exam date and time: 08/23/2023 5:36 PM Age: 37 years old Clinical indication: Mass, lump, or swelling; Abdominal pain; Generalized; Additional info: Recent R inguinal hernia surgery, severe swellpain TECHNIQUE: Imaging protocol: Computed tomography of the abdomen and pelvis with contrast. Radiation optimization: All CT scans at this facility use at least one of these dose optimization techniques: automated exposure control; mA and/or kV adjustment per patient size (includes targeted exams where dose is matched to clinical indication); or iterative reconstruction. Contrast material: ISOVUE; Contrast volume: 75 ml; Contrast route: IV; REPORTING DATA: Count of CT and Cardiac NM exams in prior 12 months: This patient has received [address] and 0 known cardiac nuclear medicine studies in the 12 months prior to the current study. COMPARISON: CT ABDOMEN PELVIS WO CON 08/16/2023 10:13 AM FINDINGS: Tubes, catheters and devices: None noted. Lungs: Lung bases appear clear. Heart: No significant coronary calcifications. No cardiomegaly. No significant pericardial effusion. Liver: Normal. No mass. Gallbladder and bile ducts: Normal. No calcified stones. No ductal dilation. Pancreas: Normal. No ductal dilation. Spleen: Normal. No splenomegaly. Adrenal glands: Normal. No mass. Kidneys and ureters: Normal. No hydronephrosis. Stomach and bowel: Unremarkable. No obstruction. No mucosal thickening. Appendix: No evidence of appendicitis. Intraperitoneal space: Unremarkable. No free air. No significant fluid collection. Retroperitoneal space: No significant retroperitoneal inflammatory changes are noted. Vasculature: Unremarkable. No abdominal aortic aneurysm. Lymph nodes: Unremarkable. No enlarged lymph nodes. Urinary bladder: Unremarkable as visualized. Reproductive: Unremarkable as visualized. Bones/joints: Unremarkable. No acute fracture. Soft tissues: Large hematoma right inguinal canal. IMPRESSION: Large hematoma right inguinal canal.
--- NOTE | 2023-08-23 16:47 | ED_ITS ---
Discharge Plan Disposition Patient Disposition: Home, Self-Care Prescriptions Prescriptions: New clindamycin HCl [Cleocin HCl] 150 mg capsule 450 mg PO Q6H 7 Days Qty: 84 0RF No Action hydrocodone-acetaminophen 5-325 mg tablet 1 tab PO Q6H PRN (Reason: post-op pain) Qty: 13 0RF Referrals Follow up/Referrals: Provider,Referral, MD [Primary Care Provider] - See instructions Activity Restrictions/Add. Instructions Additional Instructions/Restrictions: At this time it was felt you are safe to be discharged home. If new or worsening symptoms please do not hesitate to return the emergency department. Please take your antibiotics as prescribed and follow-up with Dr. Dalal on Wednesday as discussed. Clinical Impressions Clinical Impression: Hematoma, Post-op pain Discharge ED Provider: Raul White General Adult HPI General Chief complaint: PAIN Stated complaint: post op 08/16, fever, upset stomach Time Seen by Provider: 08/23/23 16:34 Mode of Arrival: Ambulatory Source of Information: Patient Limitations: No Limitations Description of Symptoms (Recalled from ER Triage Doc. by RN): PT WITH RECENT HERNIA SURGERY, C/O SURGICAL SITE PAIN AND SWELLING. REPORTS FEVER OF 102.0 AND LOW BACK PAIN History of Present Illness HPI narrative: Patient is a 37-year-old male with past medical history of remote left inguinal hernia status post surgical intervention, recent right hernia surgery who presents emergency department for evaluation of surgical site swelling and scrotal swelling. History is obtained by patient at bedside and per chart review. Patient states that he had emergent hernia surgery around [place], was in the hospital for a couple days and was subsequently discharged home. Patient is supposed to follow-up this Wednesday. He had a fever at home Tmax 102. Due to persistent groin swelling that has been worsening, associated nausea he presents here for continued evaluation. Patient has last bowel moveme nt Wednesday, still passing flatus, no dysuria. No vomiting. Per chart review of Dr. Dalal's recent note patient had an incarcerated right inguinal hernia status post surgical intervention, he had 10 scrotal swelling for which CT scan was obtained which showed a large hematoma but no evidence of immediate hernia recurrence. Related Data Previous Rx's Medication Instructions Recorded hydrocodone 5 mg-acetaminophen 325 1 tab PO Q6H PRN post-op pain #13 08/17/ mg tablet tabs clindamycin HCl 150 mg capsule 450 mg PO Q6H infection 08/23/23 (Cleocin HCl) prophylaxis 7 days #84 caps Allergies Allergy/AdvReac Type Severity Reaction Status Date / Time lidocaine Allergy Mild Rash Verified 08/16/23 05:01 procaine Allergy Mild Rash Verified 08/16/23 05:01 [facility] Disclaimer: The information contained in this section may have been updated after the patient was seen, as this information can be updated by other users. Medical History (Updated 08/23/23 @ 19:32 by Raul White MD) Exposure to COVID-19 virus Incarcerated right inguinal hernia Surgical History (Updated 08/16/23 @ 04:57 by Danielle Rodriguez, KELVIN) H/O inguinal hernia repair Social History (Updated 08/16/23 @ 04:58 by Danielle Rodriguez, KELVIN) Smoking Status: Current every day smoker tobacco type: cigarettes packs per day: 1 alcohol intake: never substance use type: marijuana current occupational status: employed Travel in the last 8 weeks: None ROS Obtained: Yes Systems reviewed as appropriate & no additional complaints except as documented Physical Exam General General appearance: alert and in no apparent distress Head Head exam: atraumatic and normocephalic Eye Eye exam: Present PERRL and EOMI ENT ENT exam: Present mucous membranes moist Neck Neck exam: Present normal inspection Chest Chest inspection: Present normal inspection and symmetric chest wall rise Respiratory Respiratory exam: Present normal lung sounds bilaterally; Absent respiratory distress Cardiovascular Cardiovascular exam: Present regular rate and normal rhythm Abdominal Exam Abdominal exam: Present soft and tenderness (Right lower quadrant over surgical site. Surgical site appears linear, well-approximated, not actively draining fluid.) exam: Present other (Significant swelling and tenderness in the right inguinal region, significant scrotal swelling, no penile involvement. Bruising over the bilateral proximal thighs.) Extremities Exam Extremities exam: Present normal inspection Neurological Exam Neurological exam: Present alert Psychiatric Psychiatric exam: Present normal affect Skin Skin exam: Present warm and dry Medical Decision Making Jaziel Inquiry Pt receiving controlled substance: No Vital Signs: 08/23/23 15:53 08/23/23 17:10 08/23/23 18:44 Temperature 98.4 F 101.7 F H Temperature Source Oral Oral Pulse Rate 77 Pulse Rate [Radial] 86 Respiratory Rate 18 Blood Pressure 129/76 Blood Pressure [Right Arm] 128/76 Blood Pressure Mean [Right Arm] 93 Blood Pressure Source Blood Pressure Source [Right Arm] Automatic Cuff Blood Pressure Position Blood Pressure Position [Right Arm] Sitting 02 Sat by Pulse Oximetry 100 97 Oxygen Delivery Method Room Air 08/23/23 19:33 Temperature 98.9 F Temperature Source Oral Pulse Rate 79 Pulse Rate [Radial] Respiratory Rate 18 Blood Pressure 149/76 H Blood Pressure [Right Arm] Blood Pressure Mean [Right Arm] Blood Pressure Source Automatic Cuff Blood Pressure Source [Right Arm] Blood Pressure Position Sitting Blood Pressure Position [Right Arm] 02 Sat by Pulse Oximetry Oxygen Delivery Method Room Air Lab Data Lab Results 08/23/23 16:10: SARS-CoV-2 (PCR) Not detected, Influenza A Untype (PCR) Not de tected, Influenza Type B (PCR) Not detected 08/23/23 17:00: WBC 9.5, RBC 3.47 L, Hgb 11.4 L, Hct 33.0 L, MCV 95.1 H, MCH 33.0 H, MCHC 34.7, RDW 13.1, Plt Count 359, MPV 8.2, Neut % (Auto) 71.9, Lymph % (Auto) 14.5, [place] % (Auto) 11.5 H, Eos % (Auto) 1.6, Baso % (Auto) 0.4, Neut # (Auto) 6.9, Lymph # (Auto) 1.4, [place] # (Auto) 1.1 H, Eos # (Auto) 0.2, Baso # (Auto) 0.0, Sodium 132 L, Potassium 4.1, Chloride 96 L, Carbon Dioxide 27, Anion Gap 13.1, BUN 14, Creatinine 0.70, Estimated Creat Clear 136, Estimated GFR 128, Est GFR ( Amer) 154, Glucose 100, Calcium 8.8, Total Bilirubin 1.6 H, AST 33, ALT 23, Alkaline Phosphatase 84, Total Protein 7.3, Albumin 4.3, Globulin 3.0, Albumin/Globulin Ratio 1.4 08/23/23 18:52: Urine Color Dark yellow, Urine Appearance Clear, Urine pH 8.5, Ur Specific [place] <= 1.005, Urine Protein 1+, Urine Glucose (UA) Negative, Urine Ketones Trace, Urine Blood Negative, Urine Nitrate Negative, Urine Bilirubin 1+ A, Urine Urobilinogen >=8.0, Ur Leukocyte Esterase Negative, Urine RBC None, Urine WBC None, Ur Squamous Epith Cells None, Amorphous Sediment Trace , Urine Bacteria None 08/23/23 17:00 08/23/23 17:00 Orders (Tests/Meds): ED MEDICATIONS Discontinued Medications Generic Name Dose Route Start Last Admin Trade Name Freq PRN Reason Stop Dose Admin Lactated Ringer's 1,000 mls @ 999 mls/hr 08/23/23 16:46 08/23/23 17:06 Lactated Ringer's 1000 Ml Bag IV 08/23/23 17:46 999 mls/hr .Q1H1M ONE Administration Clindamycin Phosphate 900 mg in 50 mls @ 100 mls/hr 08/23/23 18:45 08/23/23 18:55 Clindamycin 900mg/50ml D5w Premix IV 08/23/23 19:14 100 mls/hr ONCE ONE Administration Iopamidol 75 ml 08/23/23 17:43 08/23/23 17:44 Iopamidol-370 (76%);100ml Bottle IV 08/23/23 17:44 75 ml ONCE ONE Administration Ondansetron HCl 4 mg 08/23/23 16:46 08/23/23 17:06 Ondansetron 4mg/2ml Vial IV 08/23/23 16:47 4 mg ONCE ONE Administration Sodium Chloride 10 ml 08/23/23 17:43 08/23/23 17:44 Sodium Chloride 0.9% 10ml Syr (Rad Only) IV 08/23/23 17:44 10 ml ONCE ONE Administration ORDERS Category Date Time Status CT abdomen pelvis w con Stat Cat Scan 08/23/23 16:46 Completed CBC w/Auto Diff [Complete Blood Count Auto Diff] Stat Lab 08/23/23 17:00 Completed CMP [Comprehensive Metabolic Panel] Stat Lab 08/23/23 17:00 Completed Rapid PCR Covid and Flu A/B Stat Lab 08/23/23 16:10 Completed UA [Urinalysis and Microscopic] Stat Lab 08/23/23 18:52 Completed Blood Culture Stat Micro 08/23/23 17:14 Received Medical Decision Narrative: In summary patient is a 37-year-old male with past medical history described above presents emergency department for evaluation of postoperative swelling in the setting of recent right incarcerated inguinal hernia status post repair. Patient is hemodynamically stable nontoxic-appearing upon arrival, afebrile. Patient has impressive swelling in his right groin and inguinal region. Differential includes expanding hematoma, infection, recurrence of hernia, among others. Patient may have partial obstruction given his last bowel movement was Wednesday however he is still passing flatus so therefore is not completely obstructed. Workup will be conducted with hematologic labs, CT abdomen pelvis IV contrast. Initial inventions include crystalloid bolus, Zofran. Workup reviewed by me, hematologic labs are nonactionable, no hemoglobin is uptrending, mild hyponatremia which is nonactionable, COVID-negative. CT imaging shows a large hematoma in the right inguinal canal, no obstruction or abnormal bowel thickening. Patient became febrile temperature 101.7 degrees in the emergency department and the case was discussed with surgery Dr. Bangura. Given the patient has no significant leukocytosis, no definitive abscess fever is likely inflammatory in nature however patient should empirically be covered with antibiotics for which clindamycin was recommended. Patient was given IV dose of clindamycin here in the emergency department and will be prescribed a course of clindamycin outpatient we will follow-up with Dr. Dalal on Wednesday and was given return precautions and verbalized understanding. Critical Care Critical Care Time Critical Care Time: No
[2023-08-23] MEDS: LACTATED RINGERS 1000ML 1,000 ML 999 ML IV (17:06)
[2023-08-23] MEDS: ONDANSETRON 4MG/2ML VIAL 4 MG IV (17:06)
[2023-08-23 17:10] VITALS: TEMP 38.7
[2023-08-23 17:14] LABS: Basophils % 0.4 % (0.1-2.0); Eosinophils # 0.2 K/mm3 (0.0-0.4); Eosinophils % 1.6 % (0.1-12.0); Hemoglobin 11.4 g/dL (14.1-18.0); Lymphocytes # 1.4 K/mm3 (0.7-4.5); Lymphocytes % 14.5 % (10-50); Mean Corpuscular HGB Conc 34.7 g/dL (31.8-35.4); Mean Corpuscular Volume 95.1 fl (80-94); Mean Platelet Volume 8.2 fl (7.4-10.4); Monocytes # 1.1 K/mm3 (0.1-1.0); Monocytes % 11.5 % (1.7-9.3); Neutrophils # 6.9 K/mm3 (1.8-7.8); Neutrophils % 71.9 % (37.0-80.0); Platelet Count 359 K/mm3 (142-424); Red Blood Count 3.47 M/mm3 (4.60-6.20); Red Cell Distribution Width 13.1 % (11.5-17.5); White Blood Count 9.5 K/mm3 (4.8-10.8)
[2023-08-23 17:16] LABS: Chloride 96 mmol/L (98-107); Potassium 4.1 mmoL/L (3.5-5.1); Sodium 132 mmol/L (136-145)
[2023-08-23 17:19] LABS: Alanine Aminotransferase 23 U/L (12-78); Albumin Level 4.3 g/dl (3.5-5.0); Albumin/Globulin Ratio 1.4 (1.1-1.8); Alkaline Phosphatase 84 U/L (38-126); Anion Gap 13.1 mEq/L (5-15); Aspartate Amino Transferase 33 U/L (17-59); Bilirubin,Total 1.6 mg/dl (0.2-1.3); Blood Urea Nitrogen 14 mg/dl (9-20); Calcium 8.8 mg/dl (8.4-10.2); Carbon Dioxide 27 mmol/L (22.0-30.0); Creatinine Clearance Estimated 136 mL/min (50-200); Estimated Glomerular Filt Rate 128 ml/min (>60); GFR (African American) 154 ML/MIN (>60); Glucose 100 mg/dl (74-100); Total Protein,Serum 7.3 g/dl (6.3-8.2)
[2023-08-23] MEDS: SODIUM CHLORIDE 0.9% 10ML SYR (RAD ONLY) 10 ML IV (17:44)
[2023-08-23] MEDS: IOPAMIDOL-370 (76%);100ML BOTTLE 75 ML IV (17:44)
--- NOTE | 2023-08-23 18:37 | PC.NURSE ---
TELEPHONE STATION REPAIRER SURGEON PAGED
[2023-08-23 18:44] VITALS: BP 129/76; PULSE 77; O2SAT 97
--- NOTE | 2023-08-23 18:52 | PC.NURSE ---
Rounded on pt. No needs voiced. Call light within recah.
[2023-08-23 18:54] LABS: Microscopic, Urine URINE MICROSCOPIC (MICROSCOPIC)
[2023-08-23] MEDS: CLINDAMYCIN PHOSPHATE/D5W 900 MG/50 ML PIGGYBACK 100 MG IV (18:55)
[2023-08-23 19:08] LABS: Appearance,Urine CLEAR (Clear); Blood, Urine Negative (Negative); Color,Urine DARK YELLOW (Yellow); Glucose,Urine (UA) Negative (Negative); Ketones,Urine TRACE (Negative); Leukocyte Esterase,Urine Negative (Negative); Nitrate,Urine Negative (Negative); PH,Urine 8.5 (5.0-8.5); Protein,Urine 1+ (Negative); Specific Gravity, Urine <= 1.005 (1.005-1.030); Urobilinogen,Urine >=8.0 EU/dl (0.2)
[2023-08-23 19:10] LABS: Bilirubin,Urine 1+ (Negative)
[2023-08-23 19:24] LABS: Amorphous Sediment,Urine Trace /lpf
[2023-08-23 19:33] VITALS: BP 149/76; PULSE 79; RESP 18; TEMP 37.2; O2SAT 99
== END 2023-08-23 19:40 | disposition home or self-care (01) ==
PROVIDERS: Emergency Provider Emergency Medicine
DX: S37.892A Contusion of other urinary and pelvic organ, initial encounter (principal); F17.210 Nicotine dependence, cigarettes, uncomplicated; Y83.8 Other surgical procedures as the cause of abnormal reaction of the patient, or of later complication, without mention of misadventure at the time of the procedure; R50.82 Postprocedural fever
CPT/HCPCS: 74177; 80053; 81001; 85025; 87040; 87636; 96361; 96365; 96375; 99285; J2405; Q9967

== ENCOUNTER 2023-08-25 09:31 | Outpatient (CLI) | payer OTHER, SELFPAY ==
[2023-08-25 09:44] VITALS: BP 108/71; PULSE 73; RESP 18; TEMP 36.9; O2SAT 98
[2023-08-25] MEDS: KETOROLAC 30MG/ML VIAL 15 MG IM (09:44)
== END 2023-08-25 10:20 | disposition home or self-care (01) ==
LOC: INF 09:33
PROVIDERS: Visit Provider Surgery
DX: K40.30 Unilateral inguinal hernia, with obstruction, without gangrene, not specified as recurrent (principal); G89.18 Other acute postprocedural pain
CPT/HCPCS: 96372